=== PATIENT | male | born 1995 | race Caucasian/White ===

== ENCOUNTER 2016-06-23 21:25 | Emergency (ER) | payer OTHER ==
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
--- NOTE | 2016-06-23 23:59 | ED ORDER SUMMARY ---
..... Patient: ROBYN THAYER OrderSheet [facility] VisitID: [id number] [place] [address] 20y, M Registration Date/Time: 06/23/2016 ORDER SHEET Weight: 66.2 kg (stated) Allergies: No Known Drug Allergy GENERAL ORDERS: Cervical Spine 2 or 3V Urgent (22:46 06/23/2016 Tatianna MAC) (Ack 22:59 Krystina) (23:28 MCampbell) CT Sinus/Facial Bones wo Cont Urgent (22:46 06/23/2016 Tatianna MAC) (Ack 22:59 Krystina) (23:28 MCampbell) MEDICATION ORDERS: Tylenol PO 650 mg (NOW) (23:56 06/23/2016 Tatianna MAC) (Ack 23:58 EInderbitzen R.N.) (0:11 EInderbitzen R.N.) IV FLUIDS: ORDER SHEET NOTES: [Electronically signed by Codi Perez R.N. (00:12 06/24/2016)] [Electronically signed by Cornel Ngo MD (10:46 06/25/2016)] [Electronically locked/signed by Codi Perez R.N. (00:12 06/24/2016)]
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
--- NOTE | 2016-06-23 23:59 | ED ORDER SUMMARY ---
..... Patient: ROBYN THAYER OrderSheet [facility] VisitID: [id number] [place] [address] 20y, M Registration Date/Time: 06/23/2016 ORDER SHEET Weight: 66.2 kg (stated) Allergies: No Known Drug Allergy GENERAL ORDERS: Cervical Spine 2 or 3V Urgent (22:46 06/23/2016 Tatianna MAC) (Ack 22:59 Krystina) (23:28 MCampbell) CT Sinus/Facial Bones wo Cont Urgent (22:46 06/23/2016 Tatianna MAC) (Ack 22:59 Krystina) (23:28 MCampbell) MEDICATION ORDERS: Tylenol PO 650 mg (NOW) (23:56 06/23/2016 Tatianna MAC) (Ack 23:58 EInderbitzen R.N.) (0:11 EInderbitzen R.N.) IV FLUIDS: ORDER SHEET NOTES: [Electronically signed by Codi Perez R.N. (00:12 06/24/2016)] [Electronically signed by Cornel Ngo MD (10:46 06/25/2016)] [Electronically locked/signed by Codi Perez R.N. (00:12 06/24/2016)]
--- NOTE | 2016-06-25 10:46 | ED MED RECONCILIATION SUMMARY ---
Patient: ROBYN THAYER Medication Reconciliation Report [facility] VisitID: [id number] [address] [place] [address] 20y, M Registration Date/Time: 06/23/2016 Weight: 66.2 kg Height/Length: 69 in. BMI: 21.6 ALLERGIES: No Known Drug Allergy The patient's Home Medications are listed below: NONE. The source(s) of the original Home Medication information: patient The following Medications were given to the patient in the Emergency Department: Tylenol [PO] PO 650 mg, administered: 06/24/2016 12:02:00 AM The following Medications were prescribed to the patient: None.
--- NOTE | 2016-06-25 10:46 | ED MED RECONCILIATION SUMMARY ---
Patient: ROBYN THAYER Medication Reconciliation Report [facility] VisitID: [id number] [address] [place] [address] 20y, M Registration Date/Time: 06/23/2016 Weight: 66.2 kg Height/Length: 69 in. BMI: 21.6 ALLERGIES: No Known Drug Allergy The patient's Home Medications are listed below: NONE. The source(s) of the original Home Medication information: patient The following Medications were given to the patient in the Emergency Department: Tylenol [PO] PO 650 mg, administered: 06/24/2016 12:02:00 AM The following Medications were prescribed to the patient: None.
--- NOTE | 2016-06-25 10:46 | ED MAR SUMMARY ---
..... Medication Administration Record [address] [place] [place] [address] Patient: ROBYN THAYER Visit ID: [id number] 20y, M Weight: 66.2 kg Height/Length: 69 in BMI: 21.6 ALLERGIES: No Known Drug Allergy Given 00:02 06/24/2016 Codi Perez R.N. Medication Administered: TYLENOL [PO] (ACETAMINOPHEN), Dose: 650 mg Tablets PO. Medication Ordered: Tylenol PO 650 mg (NOW).
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
--- NOTE | 2016-06-25 10:46 | ED MAR SUMMARY ---
..... Medication Administration Record [facility] [address] [place] [address] Patient: ROBYN THAYER Visit ID: [id number] 20y, M Weight: 66.2 kg Height/Length: 69 in BMI: 21.6 ALLERGIES: No Known Drug Allergy Given 00:02 06/24/2016 Codi Perez R.N. Medication Administered: TYLENOL [PO] (ACETAMINOPHEN), Dose: 650 mg Tablets PO. Medication Ordered: Tylenol PO 650 mg (NOW).
== END 2016-06-24 00:12 | disposition home or self-care (01) ==
LOC: ED SRH 21:25
DX: S00.12XA Contusion of left eyelid and periocular area, initial encounter (principal); S00.83XA Contusion of other part of head, initial encounter; V49.40XA Driver injured in collision with unspecified motor vehicles in traffic accident, initial encounter; Y93.89 Activity, other specified; Y92.9 Unspecified place or not applicable; Y99.9 Unspecified external cause status